=== PATIENT | female | born 1970 | race Caucasian/White ===

== ENCOUNTER 2022-06-05 04:16 | Emergency (ER) | payer MEDICAID ==
[~2022-06-05] VITALS: Ht 162.6 cm; Wt 54.4 kg
--- NOTE | 2022-06-05 04:25 | NUR ---
Dr. Radford evaluating patient at bedside. MSE in progress.
--- NOTE | 2022-06-05 04:43 | NUR ---
Xray at bedside
--- NOTE | 2022-06-05 04:44 | NUR ---
Patient requested food. Provided patient with turkey sandwhich, fruit cup, 2 juices.
--- NOTE | 2022-06-05 04:58 | NUR ---
Colle's splint placed to right arm and wrapped with ALFA wrap.
--- NOTE | 2022-06-05 05:43 | NUR ---
Per patient request, patient given pants and 2 sweaters. Patient wearing clothes appropriate for the weather
--- NOTE | 2022-06-05 05:43 | NUR ---
Patient signed homeless waiver form
--- NOTE | 2022-06-05 05:44 | NUR ---
Patient given copies of printed avaliable resources.
--- NOTE | 2022-06-05 05:45 | NUR ---
Patient discharged to home in stable condition. Written and verbal after care instructions given. Patient verbalizes understanding of instructions. Stressed follow up or return to ER for worsening s/s.
[2022-06-05 05:47] VITALS: BP 120/75
== END 2022-06-05 05:48 | disposition home or self-care (01) ==
LOC: ER 04:29
DX: S52.531G Colles' fracture of right radius, subsequent encounter for closed fracture with delayed healing (principal); X58.XXXD Exposure to other specified factors, subsequent encounter; Z59.00 Homelessness unspecified; Z88.0 Allergy status to penicillin; G40.909 Epilepsy, unspecified, not intractable, without status epilepticus
CPT/HCPCS: 73090; A4663